=== PATIENT | female | born 1955 | race Caucasian/White ===

== ENCOUNTER 2021-01-31 07:17 | Emergency (ER) | payer MEDICARE ==
[~2021-01-31] VITALS: Ht 162.6 cm; Wt 92.7 kg
[2021-01-31 07:20] VITALS: BP 145/77
[2021-01-31] MEDS ORDERED: HYDROcodone/APAP 7.5/325MG 1 TAB TABLET ONE (07:21)
--- NOTE | 2021-01-31 07:40 | PHYS DOC ---
Past History Past Surgical History: No Surgical History Alcohol Use: None Adult General Chief Complaint Chief Complaint: UPPER EXTREMITY INJURY HPI HPI Patient is a 65-year-old female presenting via POV for left upper extremity pain. Patient reports injury onset was 30 minutes prior to arrival while working out at gym. Nothing known makes better or worse. Patient reports she was walking and suffered a mechanical fall as she tripped over a gym item and fell onto her left upper extremity. Reports focal pain to left humerus area that does not radiate. States she has been scared to move her arm due to 10 out of 10 severity pain. States she has no focal deficits just extreme pain with movement. Denies hitting her head, no loss of consciousness, takes a baby aspirin daily. Review of Systems Review of Systems Fourteen body systems of review of systems have been reviewed. See HPI for pertinent positives and negative responses, other martinez all other systems are negative, non-pertinent or non-contributory Current Medications Current Medications Current Medications Medications (Trade) Dose Ordered Sig/Artur Start Time Stop Time Status Last Admin Dose Admin Acetaminophen/ Hydrocodone Bitart (Lortab 7.5/325) 1 tab STK-MED ONCE 01/31/21 07:21 01/31/21 07:21 DC Allergies Allergies Allergies Coded Allergies Type Severity Reaction Last Updated Verified Penicillins Allergy Unknown 01/31/21 Yes Physical Exam Physical Exam Constitutional: Well developed, well nourished, nontoxic in appearance but in moderate distress due to pain HENT: Normocephalic, atraumatic, bilateral external ears normal, oropharynx moist, no oral exudates, nose normal. Eyes: PERRLA, EOMI, conjunctiva normal, no discharge. Neck: Normal range of motion, no tenderness, supple, no stridor. Cardiovascular: Heart rate regular, sinus rhythm, no murmurs rubs or gallops Lungs & Thorax: Bilateral breath sounds clear to auscultation Abdomen: Bowel sounds normal, soft, no tenderness, no masses, no pulsatile masses. Nonsurgical abdomen, no peritoneal signs Skin: Warm, dry, no erythema, no rash. Back: No tenderness, no CVA tenderness. Extremities: No cyanosis, no clubbing, no edema. Range of motion of left upper extremity intact and guarded due to pain, unremarkable evaluation of left shoulder, left elbow, left forearm, left wrist and hand. There is palpable pain along shaft of left humerus Neurologic: Alert and oriented X 3, grossly normal motor & sensory function, no focal deficits noted. Psychologic: Anxious affect and mood Current Patient Data Vital Signs Vital Signs Date Time Temp Pulse Resp B/P (MAP) Pulse Ox O2 Delivery O2 Flow Rate FiO2 01/31/21 07:20 97.9 97 16 145/77 (99) 98 Room Air EKG EKG [] Radiology/Procedures Radiology/Procedures AP chest, right humerus 2 views. HISTORY: Fall AP view was taken of the chest. Patient's taken a poor inspiration. There is no pneumothorax or pleural effusion. There is mild atelectasis in the left lung base. Heart is within normal limits in size. There are no other infiltrates. IMPRESSION: 1. Poor inspiration. 2. Left base linear atelectasis without other infiltrates. 3. No pneumothorax. End impression 2 views were taken of the left humerus. There is a nondisplaced fracture through the surgical neck of the proximal humerus. Fracture is best seen on the external rotation view. No other humerus fracture is identified. The elbow is incompletely evaluated. IMPRESSION: 1. Nondisplaced fracture surgical neck proximal left humerus. Electronically signed by: Romeo Hsu MD (01/31/2021 7:56 AM) [id number] Heart Score C/O Chest Pain: No Risk Factors: Risk Factors: DM, Current or recent (<one month) smoker, HTN, HLP, family history of CAD, obesity. Risk Scores: Risk Factors: DM, Current or recent (<one month) smoker, HTN, HLP, family history of CAD, obesity. Course & Med Decision Making Course & Med Decision Making ABCs unremarkable HPI physical exam and comprehensive ER work-up nonconcerning for any emergent or surgical issues Nondisplaced proximal left humerus fracture with no change in motor or sensory or neuro function of left upper extremity. Pain controlled. Patient placed in sling. Patient desires outpatient follow-up with orthopedic services at [facility] where she has been seen for prior ailments. Images were clouded over prior to patient departure Strict return precautions were discussed with good understanding by patient, all questions and concerns addressed prior to ER departure Dragon Disclaimer Dragon Disclaimer This electronic medical record was generated, in whole or in part, using a voice recognition dictation system. Departure Departure: Impression: Primary Impression: Closed left humeral fracture Disposition: HOME / SELF CARE / HOMELESS Condition: STABLE Referrals: NON,STAFF (PCP) Patient Instructions: Shoulder Fracture (Proximal Humerus or Glenoid)-SportsMed Additional Instructions: As discussed prior to ER departure, you were diagnosed with a nondisplaced fra cture at the neck of your left proximal humerus. This will require outpatient orthopedic/bone surgeon follow-up. As discussed, please ice region, keep in sling, and utilize Tylenol and ibuprofen for pain as needed. You have been prescribed narcotic pain medication which should be used for severe pain only. Please avoid using this with your previously prescribed clonazepam as co ncomitant use might put you at risk for increased respiratory depression and potentially . If any concerning signs or symptoms present prior to outpatient follow-up please do not hesitate to come back for repeat evaluation. It was a pleasure to take care of you and I wish you the best going forward Scripts Hydrocodone Bit/Acetaminophen (HYDROCODONE-APAP 7.5-325 ) 1 Each Tablet 1 TAB PO PRN Q6HRS PRN for PAIN, #20 TAB 0 Refills Prov: ROBY RUVALCABA DO 01/31/21 ROBY RUVALCABA DO Jan 31, 2021 07:40
--- NOTE | 2021-01-31 07:58 | RAD ---
AP chest, right humerus 2 views. HISTORY: Fall AP view was taken of the chest. Patient's taken a poor inspiration. There is no pneumothorax or pleur al effusion. There is mild atelectasis in the left lung base. Heart is within normal limits in size. There are no other infiltrates. IMPRESSION: 1. Poor inspiration. 2. Left base linear atelectasis without other infiltrates. 3. No pneumothorax. End impression 2 views were taken of the left humerus. There is a nondisplaced fracture through the surgical neck of the proximal humerus. Fracture is best seen on the external rotation view. No other humerus fracture is identified. The elbow is incompletely evaluated. IMPRESSION: 1. Nondisplaced fracture surgical neck proximal left humerus. Electronically signed by: Romeo Hsu MD (01/31/2021 7:56 AM) [id number]
[2021-01-31] MEDS ORDERED: HYDR-2765 PO (08:15)
[2021-01-31] MEDS: MORPHINE SULFATE 10 MG/ML SYRINGE. IM ONE (08:22)
== END 2021-01-31 08:42 | disposition home or self-care (01) ==
LOC: ER 07:17
DX: S42.212A Unspecified displaced fracture of surgical neck of left humerus, initial encounter for closed fracture (principal); Z88.0 Allergy status to penicillin; W18.09XA Striking against other object with subsequent fall, initial encounter; Y93.01 Activity, walking, marching and hiking; Y92.89 Other specified places as the place of occurrence of the external cause; Y99.8 Other external cause status
CPT/HCPCS: 71045; 73060; 96372; 99284; J2270